=== PATIENT | female | born 1960 | race Two or more races ===

== ENCOUNTER 2018-10-17 13:21 | Outpatient (CLI) | payer MEDICAID ==
[~2018-10-17] VITALS: Ht 170.2 cm; Wt 65.8 kg
[2018-10-17 15:54] VITALS: BP 123/70
[2018-10-17] MEDS ORDERED: NO MEDICATION (15:54)
--- NOTE | 2018-10-17 18:01 | Consultation ---
DATE OF CONSULTATION: 10/17/2018 CHIEF COMPLAINT: Referral for endoscopy and colonoscopy. PAST MEDICAL HISTORY: Infected gallbladder requiring cholecystectomy, ERCP stenting and stent removal in 2011. PAST SURGICAL HISTORY: Cholecystectomy. MEDICATIONS: Please see medication reconciliation list. FAMILY HISTORY: No family history of GI malignancy. SOCIAL HISTORY: The patient denies any tobacco, alcohol, or drug abuse. ALLERGIES: No known drug allergies. REVIEW OF SYSTEMS: A 10-point review of systems was performed and pertinent positives in HPI. PHYSICAL EXAMINATION: VITAL SIGNS: Temperature 97.5, blood pressure 123/70, pulse 64, respiratory rate 20. HEENT: Normocephalic and atraumatic. Sclerae anicteric. NECK: Supple. No evidence of obvious lymphadenopathy. CARDIOVASCULAR: Regular rate and rhythm. Plus S1 and S2. No obvious murmur. LUNGS: Clear to auscultation bilaterally. ABDOMEN: Positive bowel sounds. Soft and nontender. No rebound. No guarding. No peritoneal sign. EXTREMITIES: No cyanosis. No clubbing. No edema. ASSESSMENT AND PLAN: This is a 58-year-old female with need for screening colonoscopy given age of 58, never had colonoscopy before, also having chronic GERD, chronic acid reflux symptoms not responding to [id number] PPI. The patient will need endoscopy and colonoscopy. The patient was informed of the risks and benefits of the procedure. Instructions and prep for the colonoscopy was given to the her, pending authorization. Ovidio Albert M.D. DR: Mari JOB#: [id number] CC:
== END 2018-10-17 16:05 | disposition home or self-care (01) ==
LOC: PAN 13:21
DX: K21.9 Gastro-esophageal reflux disease without esophagitis (principal); Z90.49 Acquired absence of other specified parts of digestive tract